=== PATIENT | male | born 1970 | race Caucasian/White ===

== ENCOUNTER → 2020-08-31 | Day surgery (SDC) | payer OTHER ==
[~2020-08-31] MED LIST: CYCLOBENZAPRINE10 MG PO; KEFLEX500 MG PO
[2020-08-31 08:54] LABS: INR 1.04 (0.9-1.2); PROTHROMBIN TIME 12.9 SECONDS (11.4-13.6); PTT 33.9 SECONDS (22.2-34.7)
[2020-08-31 09:00] LABS: AMYLASE 47 U/L (25-115); LIPASE 87 U/L (73-393)
== END | disposition home or self-care (01) ==
LOC: FAS 08:00
PROVIDERS: Surgery
DX: D12.5 Benign neoplasm of sigmoid colon (principal); K64.8 Other hemorrhoids; R59.1 Generalized enlarged lymph nodes; I10 Essential (primary) hypertension; F17.210 Nicotine dependence, cigarettes, uncomplicated; F10.10 Alcohol abuse, uncomplicated; Z88.0 Allergy status to penicillin; Z88.5 Allergy status to narcotic agent
CPT/HCPCS: 36415; 82150; 83690; 85610; 85730; J2250; J2704; J7120

== ENCOUNTER 2020-10-23 14:21 | Emergency (ER) | payer OTHER ==
[2020-10-23 15:24] LABS: EOSINOPHIL 3.1 % (0-5); HCT 50.8 % (42.0-52.0); HGB 17.5 g/dl (13.2-18.0); LYMPHOCYTE 37.2 % (15-48); MCH 34.9 pg (25.0-31.0); MCHC 34.4 g/dL (32.0-36.0); MCV 101.2 fL (78.0-100.0); MONOCYTE 10.6 % (0-12); MPV 11.8 fL (6.0-9.5); NEUTROPHIL 47.6 % (41-80); NRBC 0; PLT 163 K/uL (150-400); RBC 5.02 M/uL (4.70-6.00); RDW 13.5 % (11.5-14.0); WBC 5.8 K/uL (4.0-10.5)
[2020-10-23 15:29] LABS: ALBUMIN 4.2 g/dL (3.4-5.0); BILIRUBIN - TOTAL 0.3 mg/dL (0.2-1.0); BUN/CREAT RATIO (CALC) 12.1 RATIO; CREATININE 0.66 mg/dL (0.67-1.17); GLOBULIN (CALCULATION) 3.9 g/dL; POTASSIUM 4.1 mmol/L (3.5-5.1); TOTAL PROTEIN 8.1 g/dL (6.4-8.2)
[2020-10-23 15:39] LABS: LACTIC ACID 1.7 mmol/L (0.4-1.9)
[2020-10-23 16:06] LABS: BILIRUBIN NEGATIVE (NEGATIVE); BLOOD NEGATIVE Ery/uL (NEGATIVE); CLARITY CLEAR (CLEAR); COLOR YELLOW (YELLOW); GLUCOSE (U) NORMAL (NORMAL); LEUKOCYTES NEGATIVE Leu/uL (NEGATIVE); NITRITE NEGATIVE (NEGATIVE); PROTEIN NEGATIVE (NEGATIVE); SPECIFIC GRAVITY <=1.005 (1.001-1.030); UROBILINOGEN 0.2 mg/dL (0.2-1.0)
== END 2020-10-23 17:01 | disposition home or self-care (01) ==
LOC: FER 14:21
PROVIDERS: Emergency Medicine
DX: K59.00 Constipation, unspecified (principal); K76.0 Fatty (change of) liver, not elsewhere classified; R11.2 Nausea with vomiting, unspecified; R19.7 Diarrhea, unspecified; I10 Essential (primary) hypertension; F17.200 Nicotine dependence, unspecified, uncomplicated; Z90.49 Acquired absence of other specified parts of digestive tract; Z88.0 Allergy status to penicillin; Z88.5 Allergy status to narcotic agent
CPT/HCPCS: 36415; 80053; 81003; 83605; 83690; 85025; Q9967